=== PATIENT | male | born 1940 | race Caucasian/White ===

== ENCOUNTER 2016-04-20 10:25 | Outpatient (CLI) | payer MEDICARE | END 2016-04-20 10:26 | disposition home or self-care (01) | DX: M1A.37 Chronic gout due to renal impairment, ankle and foot (principal); Z12.5 Encounter for screening for malignant neoplasm of prostate; I10 Essential (primary) hypertension; N28.9 Disorder of kidney and ureter, unspecified | CPT/HCPCS: 36415; 80053; 84550; 85025; G0103 ==

== ENCOUNTER 2016-04-22 09:35 | Outpatient (CLI) | payer MEDICARE | END 2016-04-22 09:36 | disposition home or self-care (01) | DX: R97.20 Elevated prostate specific antigen [PSA] (principal) ==

== ENCOUNTER 2016-09-19 08:33 | Outpatient (CLI) | payer MEDICARE ==
[2016-09-19 13:07] LABS: BASOPHILS % (AUTO) 0.4 %; EOSINOPHILS # (AUTO) 0.4 10^3/uL (0.0-0.7); EOSINOPHILS % (AUTO) 3.3 %; HCT - HEMATOCRIT 43.5 % (42.0-52.0); HGB - HEMOGLOBIN 14.7 g/dL (14.0-18.0); LYMPHOCYTES # (AUTO) 2.2 10^3/uL (1.5-3.5); LYMPHOCYTES % (AUTO) 19.3 %; MEAN CORPUSCULAR HEMOGLOBIN 34.6 pg (27.0-31.0); MEAN CORPUSCULAR HGB CONC 33.9 g/dL (32.0-36.0); MEAN PLATELET VOLUME 10.1 fL (7.4-11.4); MONOCYTES # (AUTO) 1.1 10^3/uL (0.0-1.0); MONOCYTES % (AUTO) 9.4 %; NEUTROPHILS # (AUTO) 7.7 10^3/uL (1.5-6.6); NEUTROPHILS % (AUTO) 67.6 %; RED BLOOD COUNT 4.26 10^6/uL (4.70-6.10); RED CELL DISTRIBUTION WIDTH 14.5 % (12.0-15.0); UNCORRECTED WHITE BLOOD COUNT 11.4 x10^3/uL; WHITE BLOOD COUNT 11.4 x10^3/uL (4.8-10.8)
[2016-09-19 13:26] LABS: ALBUMIN/GLOBULIN RATIO 1.1 (1.0-2.2); BILIRUBIN,TOTAL 0.9 mg/dL (0.2-1.0); BUN - BLOOD UREA NITROGEN 26 mg/dL (6-20); CALCIUM 9.1 mg/dL (8.5-10.3); CARBON DIOXIDE - CO2 29 mmol/L (21-32); CHLORIDE 99 mmol/L (101-111); CHOL/HDL RATIO 2.1 (<5.0); CHOLESTEROL 113 mg/dL; CREATININE 1.3 mg/dL (0.6-1.2); GFR - MDRD 54 (>89); GLUCOSE 120 mg/dL (70-100); HDL CHOLESTEROL 54 mg/dL; LDL/HDL RATIO 0.8 (<3.6); POTASSIUM 3.9 mmol/L (3.5-5.0); SODIUM 135 mmol/L (135-145); TOTAL PROTEIN 7.5 g/dL (6.7-8.2); TRIGLYCERIDES 85 mg/dL; VLDL CHOLESTEROL 17 mg/dL
[2016-09-19 13:38] LABS: HEMOGLOBIN A1C 0.73 g/dL
== END 2016-09-19 08:34 | disposition home or self-care (01) ==
LOC: LAB.WCP 08:33
PROVIDERS: ATTEND Family Medicine
DX: I10 Essential (primary) hypertension (principal); E11.51 Type 2 diabetes mellitus with diabetic peripheral angiopathy without gangrene; E78.5 Hyperlipidemia, unspecified
CPT/HCPCS: 36415; 80053; 80061; 82043; 83036; 85025

== ENCOUNTER 2017-03-21 08:00 | Outpatient (CLI) | payer MEDICARE ==
[2017-03-21 19:09] LABS: BASOPHILS % (AUTO) 0.6 %; EOSINOPHILS % (AUTO) 4.9 %; HCT - HEMATOCRIT 46.2 % (42.0-52.0); HGB - HEMOGLOBIN 15.4 g/dL (14.0-18.0); LYMPHOCYTES % (AUTO) 28.6 %; MEAN CORPUSCULAR HEMOGLOBIN 34.4 pg (27.0-31.0); MEAN CORPUSCULAR HGB CONC 33.3 g/dL (32.0-36.0); MEAN CORPUSCULAR VOLUME 103.6 fL (80.0-94.0); MEAN PLATELET VOLUME 10.4 fL (7.4-11.4); MONOCYTES % (AUTO) 8.8 %; NEUTROPHILS % (AUTO) 57.1 %; RED BLOOD COUNT 4.47 10^6/uL (4.70-6.10); RED CELL DISTRIBUTION WIDTH 13.9 % (12.0-15.0); UNCORRECTED WHITE BLOOD COUNT 8.7 x10^3/uL; WHITE BLOOD COUNT 8.7 x10^3/uL (4.8-10.8)
[2017-03-21 19:15] LABS: BAND NEUTROPHILS % (MANUAL) 0 %
[2017-03-21 19:33] LABS: BASOPHILS % (MANUAL) 1 %; EOSINOPHILS % (MANUAL) 4 %; LYMPHOCYTES % (MANUAL) 33 %; NEUTROPHILS % (MANUAL) 52 %; NP AUTO DIFFERENTIAL? YES; NP MAN DIFFERENTIAL? NO; PLATELET ESTIMATE, MANUAL NORMAL (130-450,000) (NORMAL); PLATELET MORPHOLOGY NORMAL APPEARANCE (NORMAL); TOTAL CELLS COUNTED 100
== END 2017-03-21 08:01 | disposition home or self-care (01) ==
LOC: LAB.WCP 08:00
PROVIDERS: ATTEND Family Medicine
DX: D72.829 Elevated white blood cell count, unspecified (principal)
CPT/HCPCS: 36415; 85025

== ENCOUNTER 2017-05-08 14:13 | Outpatient (CLI) | payer MEDICARE ==
[2017-05-08 19:29] LABS: ALBUMIN 3.8 g/dL (3.2-5.5); BILIRUBIN,TOTAL 0.8 mg/dL (0.2-1.0); CALCIUM 8.6 mg/dL (8.5-10.3); CREATININE 1.6 mg/dL (0.6-1.2); TOTAL PROTEIN 7.6 g/dL (6.7-8.2)
== END 2017-05-08 14:14 | disposition home or self-care (01) ==
LOC: LAB.WCP 14:13
PROVIDERS: ATTEND Family Medicine
DX: N39.0 Urinary tract infection, site not specified (principal); N40.1 Benign prostatic hyperplasia with lower urinary tract symptoms; R30.0 Dysuria
CPT/HCPCS: 36415; 80053; 87077; 87086

== ENCOUNTER 2017-05-10 08:00 | Outpatient (CLI) | payer MEDICARE ==
[2017-05-10 12:27] LABS: BASOPHILS % (AUTO) 0.1 %; HGB - HEMOGLOBIN 15.1 g/dL (14.0-18.0); LYMPHOCYTES % (AUTO) 5.8 %; MEAN CORPUSCULAR HEMOGLOBIN 34.8 pg (27.0-31.0); MEAN CORPUSCULAR HGB CONC 34.8 g/dL (32.0-36.0); MEAN CORPUSCULAR VOLUME 99.8 fL (80.0-94.0); MEAN PLATELET VOLUME 9.5 fL (7.4-11.4); MONOCYTES # (AUTO) 1.6 10^3/uL (0.0-1.0); MONOCYTES % (AUTO) 9.2 %; NEUTROPHILS # (AUTO) 14.7 10^3/uL (1.5-6.6); NEUTROPHILS % (AUTO) 84.9 %; PLT - PLATELET COUNT 201 10^3/uL (130-450); RED BLOOD COUNT 4.35 10^6/uL (4.70-6.10); RED CELL DISTRIBUTION WIDTH 13.3 % (12.0-15.0); WHITE BLOOD COUNT 17.3 x10^3/uL (4.8-10.8)
[2017-05-10 13:13] LABS: CALCIUM 8.9 mg/dL (8.5-10.3); CREATININE 1.7 mg/dL (0.6-1.2)
== END 2017-05-10 08:01 | disposition home or self-care (01) ==
LOC: LAB.WCP 08:00
PROVIDERS: ATTEND Family Medicine
DX: E87.1 Hypo-osmolality and hyponatremia (principal); N39.0 Urinary tract infection, site not specified
CPT/HCPCS: 36415; 80048; 85025

== ENCOUNTER 2017-05-12 08:15 | Outpatient (CLI) | payer MEDICARE ==
[2017-05-12 12:16] LABS: CALCIUM 8.8 mg/dL (8.5-10.3); CREATININE 1.6 mg/dL (0.6-1.2)
[2017-05-12 12:35] LABS: BASOPHILS # (AUTO) 0.1 10^3/uL (0.0-0.1); BASOPHILS % (AUTO) 0.8 %; EOSINOPHILS # (AUTO) 0.4 10^3/uL (0.0-0.7); EOSINOPHILS % (AUTO) 2.5 %; HGB - HEMOGLOBIN 14.7 g/dL (14.0-18.0); LYMPHOCYTES # (AUTO) 1.8 10^3/uL (1.5-3.5); LYMPHOCYTES % (AUTO) 12.3 %; MEAN CORPUSCULAR HEMOGLOBIN 35.2 pg (27.0-31.0); MEAN CORPUSCULAR HGB CONC 35.7 g/dL (32.0-36.0); MEAN CORPUSCULAR VOLUME 98.4 fL (80.0-94.0); MEAN PLATELET VOLUME 9.2 fL (7.4-11.4); MONOCYTES # (AUTO) 1.3 10^3/uL (0.0-1.0); NEUTROPHILS # (AUTO) 10.9 10^3/uL (1.5-6.6); NEUTROPHILS % (AUTO) 75.4 %; PLT - PLATELET COUNT 205 10^3/uL (130-450); RED BLOOD COUNT 4.17 10^6/uL (4.70-6.10); RED CELL DISTRIBUTION WIDTH 13.2 % (12.0-15.0); WHITE BLOOD COUNT 14.4 x10^3/uL (4.8-10.8)
== END 2017-05-12 08:16 | disposition home or self-care (01) ==
LOC: LAB.WCP 08:15
PROVIDERS: ATTEND Family Medicine
DX: N28.9 Disorder of kidney and ureter, unspecified (principal); N39.0 Urinary tract infection, site not specified; E78.1 Pure hyperglyceridemia; I10 Essential (primary) hypertension
CPT/HCPCS: 36415; 80048; 85025

== ENCOUNTER 2017-05-15 08:04 | Outpatient (CLI) | payer MEDICARE ==
[2017-05-15 12:42] LABS: BASOPHILS % (AUTO) 0.7 %; EOSINOPHILS % (AUTO) 3.2 %; HGB - HEMOGLOBIN 13.9 g/dL (14.0-18.0); LYMPHOCYTES % (AUTO) 14.6 %; MEAN CORPUSCULAR HEMOGLOBIN 34.4 pg (27.0-31.0); MEAN CORPUSCULAR HGB CONC 35.8 g/dL (32.0-36.0); MEAN CORPUSCULAR VOLUME 96.1 fL (80.0-94.0); MEAN PLATELET VOLUME 8.4 fL (7.4-11.4); MONOCYTES % (AUTO) 9.3 %; NEUTROPHILS % (AUTO) 72.2 %; PLT - PLATELET COUNT 236 10^3/uL (130-450); RED BLOOD COUNT 4.04 10^6/uL (4.70-6.10); RED CELL DISTRIBUTION WIDTH 13.2 % (12.0-15.0); WHITE BLOOD COUNT 12.7 x10^3/uL (4.8-10.8)
[2017-05-15 12:44] LABS: CALCIUM 8.9 mg/dL (8.5-10.3); CREATININE 1.6 mg/dL (0.6-1.2)
[2017-05-15 13:11] LABS: ABNORMAL LYMPHS % (MANUAL) 0 %; BAND NEUTROPHILS % (MANUAL) 2 %; DIFFERENTIAL COMMENT MANUAL DIFFERENTIAL; EOSINOPHILS # (MANUAL) 0.8 10^3/uL (0-0.7); LYMPHOCYTES # (MANUAL) 1.8 10^3/uL (1.5-3.5); LYMPHOCYTES % (MANUAL) 14 %; METAMYELOCYTES % (MANUAL) 1 %; MONOCYTES # (MANUAL) 1.3 10^3/uL (0.0-1.0); NEUTROPHILS # (MANUAL) 8.8 10^3/uL (1.5-6.6); NEUTROPHILS % (MANUAL) 67 %; PLATELET ESTIMATE, MANUAL NORMAL (130-450,000) (NORMAL); PLATELET MORPHOLOGY NORMAL APPEARANCE (NORMAL); RBC MORPHOLOGY (MULTIPLE) NORMAL APPEARANCE (NORMAL)
== END 2017-05-15 08:05 | disposition home or self-care (01) ==
LOC: LAB.WCP 08:04
PROVIDERS: ATTEND Family Medicine
DX: N40.1 Benign prostatic hyperplasia with lower urinary tract symptoms (principal); N39.0 Urinary tract infection, site not specified; N28.9 Disorder of kidney and ureter, unspecified
CPT/HCPCS: 36415; 80048; 85025

== ENCOUNTER 2017-08-17 14:36 | Emergency (ER) | payer MEDICARE, OTHER ==
--- NOTE | 2017-08-17 14:57 | ED Physician Documentation ---
PD HPI CHEST PAIN - Stated complaint Stated Complaint: CHEST ACHE/TWINGES - Chief complaint Chief Complaint: Cardiac - History obtained from History obtained from: Patient, Family () - History of Present Illness Timing - onset: Other (76 year-old gentleman with history of stenting 1 8 years ago who had a near syncopal episode while doing yard work about a month ago and ever since then has been just aware of his heart with a mild pressure- like pain that radiates between the shoulder blades. Does not get worse with exertion. He is not short of breath with it. Last stress test was a proximally 3 years ago per him and negative.) Review of Systems Constitutional: denies: Fever, Chills Nose: denies: Rhinorrhea / runny nose Throat: denies: Sore throat Cardiac: denies: Palpitations, Pedal edema, Calf pain Respiratory: denies: Dyspnea, Cough PD PAST MEDICAL HISTORY - Past Medical History Past Medical History: Yes Endocrine/Autoimmune: None Musculoskeletal: Osteoarthritis, Chronic back pain, Other - Past Surgical History Past Surgical History: Yes General: Appendectomy Ortho: Hip replacement Cardiovascular: Coronary stent - Present Medications Home Medications: Ambulatory Orders Medication Instructions Recorded Confirmed Atenolol 50 mg PO DAILY 03/21/14 03/21/14 Atorvastatin [Lipitor] 10 mg PO DAILY 03/21/14 03/21/14 hydroCHLOROthiazide 12.5 mg PO DAILY 03/21/14 03/21/14 [Hydrochlorothiazide] Aspirin Chewable [[facility] [place] 08/17/17 Aspirin] Tamsulosin [Flomax] 08/17/17 - Allergies Allergies/Adverse Reactions: Allergies Allergy/AdvReac Type Severity Reaction Status Date / Time No Known Drug Allergies Allergy Verified 08/17/17 14:49 - Social History Does the pt smoke?: No Smoking Status: Never smoker Does the pt drink ETOH?: No Does the pt have substance abuse?: No - Family History Family history: reports: Non contributory - Immunizations Immunizations are current?: Yes - POLST Patient has POLST: No PD ED PE NORMAL - Vitals Vital signs reviewed: Yes - General General: Alert and oriented X 3, No acute distress - HEENT HEENT: PERRL, EOMI - Neck Neck: Supple, no meningeal sign, No bony TTP - Cardiac Cardiac: RRR, No murmur - Respiratory Respiratory: No respiratory distress, Clear bilaterally - Abdomen Abdomen: Normal bowel sounds, Soft, Non tender - Extremities Extremities: No edema, No calf tenderness / cord - Neuro Neuro: Alert and oriented X 3, Normal speech - Psych Psych: Normal mood, Normal affect Results - Vitals Vitals: Vital Signs - 24 hr 08/17/17 08/17/17 08/17/17 14:38 15:27 16:00 Temperature 36.6 C Heart Rate 58 L 59 L 61 Respiratory 18 18 16 Rate Blood Pressure 157/74 H 122/69 126/61 O2 Saturation 100 96 94 08/17/17 16:06 Temperature Heart Rate 56 L Respiratory 15 Rate Blood Pressure 121/62 O2 Saturation 94 Oxygen O2 Source Room air - EKG (time done) 1446 Rate: Rate (enter#) (56) Rhythm: NSR [place]: Normal Intervals: Prolonged [place] QRS: Normal Ischemia: Normal ST segments Computer interpretation: Agree with computer - Labs Labs: Laboratory Tests 08/17/17 08/17/17 08/17/17 14:58 14:58 14:58 WBC 9.9 RBC 4.37 L Hgb 15.1 Hct 43.8 MCV 100.3 H MCH 34.5 H MCHC 34.4 RDW 14.0 Plt Count 169 MPV 9.3 Neut # 6.4 Lymph # 2.1 Barren # 0.9 Eos # 0.3 Baso # 0.1 Absolute Nucleated RBC 0.00 Nucleated RBC % 0.0 Sodium 134 L Potassium 4.2 Chloride 100 L Carbon Dioxide 27 Anion Gap 7.0 BUN 31 H Creatinine 1.5 H Estimated GFR (MDRD) 45 L Glucose 116 H Calcium 9.3 Total Bilirubin 0.7 AST 25 ALT 25 Alkaline Phosphatase 48 Troponin I < 0.04 Total Protein 7.6 Albumin 4.2 Globulin 3.4 Albumin/Globulin Ratio 1.2 Lipase 21 L PD MEDICAL DECISION MAKING - ED course ED course: 76-year-old gentleman with known coronary disease presents with atypical almost subacute chest pain with presyncopal episode a month ago. His initial diagnostics are reassuring, Including EKG and troponin. We considered CT coronary angiography, however between the stent and his calcium score the radiologist felt like it would be a nondiagnostic study and it was canceled. I spoke with Dr. Medley on-call for his cook chief who will contact the patient and arrange for expedited stress testing. Departure - Departure Disposition: Home, Self Care Clinical Impression: Coronary arteriosclerosis after percutaneous transluminal coronary angioplasty (PTCA) Chest pain Qualifiers: Chest pain type: unspecified Qualified Code(s): R07.9 - Chest pain, unspecified Record reviewed to determine appropriate education?: Yes Instructions: ED Chest Pain Atypical Unkn Cause Comments: Dr. Blanco's office should be contacting you in short order to arrange for an expedited stress test, if you do not hear from them by 3 PM tomorrow please call his office. Return if worsening or new symptoms develop.
[2017-08-17] MEDS ORDERED: IOPAMIDOL-300 100 ML VIAL ONE (15:03)
[2017-08-17 15:04] LABS: BASOPHILS # (AUTO) 0.1 10^3/uL (0.0-0.1); BASOPHILS % (AUTO) 0.5 %; EOSINOPHILS # (AUTO) 0.3 10^3/uL (0.0-0.7); EOSINOPHILS % (AUTO) 3.3 %; HGB - HEMOGLOBIN 15.1 g/dL (14.0-18.0); LYMPHOCYTES # (AUTO) 2.1 10^3/uL (1.5-3.5); LYMPHOCYTES % (AUTO) 21.5 %; MEAN CORPUSCULAR HEMOGLOBIN 34.5 pg (27.0-31.0); MEAN CORPUSCULAR HGB CONC 34.4 g/dL (32.0-36.0); MEAN CORPUSCULAR VOLUME 100.3 fL (80.0-94.0); MEAN PLATELET VOLUME 9.3 fL (7.4-11.4); MONOCYTES # (AUTO) 0.9 10^3/uL (0.0-1.0); MONOCYTES % (AUTO) 9.6 %; NEUTROPHILS # (AUTO) 6.4 10^3/uL (1.5-6.6); NEUTROPHILS % (AUTO) 65.1 %; PLT - PLATELET COUNT 169 10^3/uL (130-450); RED BLOOD COUNT 4.37 10^6/uL (4.70-6.10); WHITE BLOOD COUNT 9.9 x10^3/uL (4.8-10.8)
--- NOTE | 2017-08-17 15:14 | XRAY Report ---
EXAM: CHEST RADIOGRAPHY EXAM DATE: 08/17/2017 03:02 PM. CLINICAL HISTORY: Chest pain. COMPARISON: None. TECHNIQUE: 1 view. FINDINGS: Lungs/Pleura: No focal opacities evident. No pleural effusion. No pneumothorax. Mediastinum: Within exam limitations, the cardiomediastinal contour is normal. Other: None. IMPRESSION: No acute intrathoracic plain film abnormality. [facility] Referring Provider Line: [phone] SITE ID: [id number]
[2017-08-17 15:31] LABS: ALBUMIN 4.2 g/dL (3.2-5.5); ALBUMIN/GLOBULIN RATIO 1.2 (1.0-2.2); BILIRUBIN,TOTAL 0.7 mg/dL (0.2-1.0); CALCIUM 9.3 mg/dL (8.5-10.3); CREATININE 1.5 mg/dL (0.6-1.2); TOTAL PROTEIN 7.6 g/dL (6.7-8.2)
[2017-08-17] MEDS ORDERED: SODIUM CHLORIDE 0.9% 1,000 ML IV ONE (15:41)
[2017-08-17] MEDS ORDERED: NITROGLYCERIN SL 0.4 MG TABLET SL STA (15:57)
[2017-08-17] MEDS ORDERED: METOPROLOL 5 MG/5 ML VIAL IVP STA (15:57)
[2017-08-17 17:06] VITALS: BP 125/62
--- NOTE | 2017-08-17 17:40 | CT Report ---
EXAM: CALCIUM SCORE EXAM DATE: 08/17/2017 04:22 PM. HISTORY: Chest pain. COMPARISON: None. TECHNIQUE: Axial sections were obtained through the heart. In accordance with CT protocol optimization, one or more of the following dose reduction techniques w ere utilized for this exam: automated exposure control, adjustment of mA and/or KV based on patient s ize, or use of iterative reconstructive technique. FINDINGS: CALCIUM SCORE: The LMA equals 251.03. The LAD equals 814.38. The left circumflex equals 794.69. The R CA equals 1320.49. The total calcium score is 3180.59. The patient is in the 96th percentile rank. LUNGS AND MEDIASTINUM: Unremarkable. IMPRESSION: Calcium score of 3180.59. There was a significant plaque burden detected. This score is associated wi th a high probability of occlusive coronary artery disease and an increased risk of cardiovascular ev ents. The patient is advised to aggressively engage in risk factor modifications. Clinical follow-up is recommended. [facility] Referring Provider Line: [phone] SITE ID: [id number]
== END 2017-08-17 17:14 | disposition home or self-care (01) ==
LOC: ED 14:36
DX: I25.10 Atherosclerotic heart disease of native coronary artery without angina pectoris (principal); Z79.82 Long term (current) use of aspirin; Z96.649 Presence of unspecified artificial hip joint; Z95.5 Presence of coronary angioplasty implant and graft
CPT/HCPCS: 36415; 71045; 75571; 80053; 83690; 84484; 85025; 93005; 96374; 99284

== ENCOUNTER 2018-07-24 08:00 | Outpatient (CLI) | payer MEDICARE, OTHER ==
[2018-07-24 12:45] LABS: BASOPHILS # (AUTO) 0.1 10^3/uL (0.0-0.1); BASOPHILS % (AUTO) 0.6 %; EOSINOPHILS # (AUTO) 0.3 10^3/uL (0.0-0.7); EOSINOPHILS % (AUTO) 3.9 %; HGB - HEMOGLOBIN 15.9 g/dL (14.0-18.0); LYMPHOCYTES # (AUTO) 1.9 10^3/uL (1.5-3.5); MEAN CORPUSCULAR HEMOGLOBIN 34.3 pg (27.0-31.0); MEAN CORPUSCULAR HGB CONC 33.7 g/dL (32.0-36.0); MEAN CORPUSCULAR VOLUME 101.8 fL (80.0-94.0); MEAN PLATELET VOLUME 10.1 fL (7.4-11.4); MONOCYTES # (AUTO) 0.9 10^3/uL (0.0-1.0); MONOCYTES % (AUTO) 10.7 %; NEUTROPHILS # (AUTO) 5.3 10^3/uL (1.5-6.6); NEUTROPHILS % (AUTO) 62.8 %; PLT - PLATELET COUNT 187 10^3/uL (130-450); RED BLOOD COUNT 4.63 10^6/uL (4.70-6.10); RED CELL DISTRIBUTION WIDTH 13.6 % (12.0-15.0); WHITE BLOOD COUNT 8.5 x10^3/uL (4.8-10.8)
[2018-07-24 13:31] LABS: ALBUMIN 3.8 g/dL (3.2-5.5); ALBUMIN/GLOBULIN RATIO 1.2 (1.0-2.2); ALKALINE PHOSPHATASE 46 IU/L (42-121); ALT ALANINE AMINOTRANSFERASE 31 IU/L (10-60); AST ASPARTATE AMINOTRANSFERASE 24 IU/L (10-42); BILIRUBIN,TOTAL 0.5 mg/dL (0.2-1.0); BUN - BLOOD UREA NITROGEN 23 mg/dL (6-20); CALCIUM 9.1 mg/dL (8.5-10.3); CARBON DIOXIDE - CO2 27 mmol/L (21-32); CHLORIDE 100 mmol/L (101-111); CHOL/HDL RATIO 1.9 (<5.0); CHOLESTEROL 130 mg/dL; CREATININE 1.3 mg/dL (0.6-1.2); GFR - MDRD 53 (>89); GLUCOSE 133 mg/dL (70-100); HDL CHOLESTEROL 67 mg/dL; LDL CHOLESTEROL,CALCULATED 49 mg/dL; LDL/HDL RATIO 0.7 (<3.6); SODIUM 136 mmol/L (135-145); VLDL CHOLESTEROL 14 mg/dL
[2018-07-24 13:55] LABS: HB2 TOTAL 17.7 g/dL; HEMOGLOBIN A1C 0.81 g/dL; HEMOGLOBIN A1C % 6.3 % (4.6-6.2)
== END 2018-07-24 23:59 | disposition home or self-care (01) ==
LOC: LAB.WCP 08:00
PROVIDERS: ATTEND Family Medicine
DX: I10 Essential (primary) hypertension (principal); E11.51 Type 2 diabetes mellitus with diabetic peripheral angiopathy without gangrene; R97.20 Elevated prostate specific antigen [PSA]; E78.5 Hyperlipidemia, unspecified
CPT/HCPCS: 36415; 80053; 80061; 82043; 83036; 83721; 84153; 85025

== ENCOUNTER 2019-06-21 08:00 | Outpatient (CLI) | payer MEDICARE, OTHER ==
[2019-06-21 11:59] LABS: BASOPHILS % (AUTO) 0.5 %; EOSINOPHILS # (AUTO) 0.3 10^3/uL (0.0-0.7); EOSINOPHILS % (AUTO) 3.6 %; HGB - HEMOGLOBIN 15.4 g/dL (14.0-18.0); LYMPHOCYTES # (AUTO) 1.6 10^3/uL (1.5-3.5); MEAN CORPUSCULAR HEMOGLOBIN 34.9 pg (27.0-31.0); MEAN CORPUSCULAR HGB CONC 34.2 g/dL (32.0-36.0); MONOCYTES # (AUTO) 0.8 10^3/uL (0.0-1.0); MONOCYTES % (AUTO) 9.3 %; NEUTROPHILS # (AUTO) 5.6 10^3/uL (1.5-6.6); NEUTROPHILS % (AUTO) 67.2 %; PLT - PLATELET COUNT 178 10^3/uL (130-450); RED BLOOD COUNT 4.41 10^6/uL (4.70-6.10); WHITE BLOOD COUNT 8.4 x10^3/uL (4.8-10.8)
[2019-06-21 12:12] LABS: ALBUMIN 3.5 g/dL (3.2-5.5); ALBUMIN/GLOBULIN RATIO 1.1 (1.0-2.2); ALKALINE PHOSPHATASE 38 IU/L (42-121); ALT ALANINE AMINOTRANSFERASE 32 IU/L (10-60); AST ASPARTATE AMINOTRANSFERASE 25 IU/L (10-42); BILIRUBIN,TOTAL 1.1 mg/dL (0.2-1.0); BUN - BLOOD UREA NITROGEN 19 mg/dL (6-20); CARBON DIOXIDE - CO2 29 mmol/L (21-32); CHLORIDE 101 mmol/L (101-111); CHOLESTEROL 133 mg/dL; CREATININE 1.4 mg/dL (0.6-1.2); GFR - MDRD 49 (>89); GLUCOSE 128 mg/dL (70-100); HDL CHOLESTEROL 65 mg/dL; LDL CHOLESTEROL,CALCULATED 56 mg/dL; LDL/HDL RATIO 0.9 (<3.6); SODIUM 137 mmol/L (135-145); TOTAL PROTEIN 6.6 g/dL (6.7-8.2); VLDL CHOLESTEROL 12 mg/dL
[2019-06-21 12:20] LABS: HB2 TOTAL 15.7 g/dL; HEMOGLOBIN A1C 0.79 g/dL; HEMOGLOBIN A1C % 6.8 % (4.6-6.2)
[2019-06-21 12:57] LABS: CREATININE,URINE 127.8 mg/dL; MICROALBUM/CREATININE RATIO,UR 2687.8 ug/mg (<30.0); MICROALBUMIN,URINE 343.5 mg/dL (0-300.0)
== END 2019-06-21 23:59 | disposition home or self-care (01) ==
LOC: LAB.WCP 08:00
PROVIDERS: ATTEND Physician Assistant Medical
DX: E87.1 Hypo-osmolality and hyponatremia (principal); I10 Essential (primary) hypertension; E78.5 Hyperlipidemia, unspecified; E11.59 Type 2 diabetes mellitus with other circulatory complications; N28.9 Disorder of kidney and ureter, unspecified; R97.20 Elevated prostate specific antigen [PSA]; G47.00 Insomnia, unspecified
CPT/HCPCS: 36415; 80053; 80061; 82043; 82570; 83036; 83721; 84443; 85025

== ENCOUNTER 2019-07-05 15:04 | Emergency (ER) | payer MEDICARE, OTHER ==
--- NOTE | 2019-07-05 15:20 | ED Physician Documentation ---
PD HPI FOCAL NEURO - Stated complaint Stated Complaint: STROKE LIKE SYMPTOMS - Chief complaint Chief Complaint: Neuro - History obtained from History obtained from: Patient - History of Present Illness Timing - onset: Today (This is an 78-year-old gentleman with history of hypertension. He is on aspirin but no other anticoagulants or antithrombotics. About half an hour ago developed difficulty speaking and difficulty with word finding. He is right-handed. Because he had a similar episode about 3 weeks ago that lasted for about half an hour. He did not seek immediate medical attention at the time, but subsequently saw his primary care PA who has scheduled him for an MRI. He notes no other neurologic deficits.) Review of Systems Ten Systems: 10 systems reviewed and negative Constitutional: denies: Fever, Chills Ears: denies: Loss of hearing, Ear pain Nose: denies: Rhinorrhea / runny nose, Congestion Throat: denies: Sore throat Cardiac: denies: Chest pain / pressure, Palpitations Respiratory: denies: Dyspnea GI: denies: Abdominal Pain PD PAST MEDICAL HISTORY - Past Medical History Past Medical History: Yes Cardiovascular: Hypertension Endocrine/Autoimmune: None Musculoskeletal: Osteoarthritis, Chronic back pain, Other - Past Surgical History Past Surgical History: Yes General: Appendectomy Ortho: Hip replacement Cardiovascular: Coronary stent - Present Medications Home Medications: Ambulatory Orders Medication Instructions Recorded Confirmed Atenolol 50 mg PO DAILY 03/21/14 03/21/14 Atorvastatin [Lipitor] 10 mg PO DAILY 03/21/14 03/21/14 hydroCHLOROthiazide 12.5 mg PO DAILY 03/21/14 03/21/14 [Hydrochlorothiazide] Aspirin Chewable [[facility] [place] 08/17/17 Aspirin] Tamsulosin [Flomax] 08/17/17 - Allergies Allergies/Adverse Reactions: Allergies Allergy/AdvReac Type Severity Reaction Status Date / Time No Known Drug Allergies Allergy Verified 07/05/19 15:19 - Social History Does the pt smoke?: No Smoking Status: Never smoker Does the pt drink ETOH?: No Does the pt have substance abuse?: No - Family History Family history: reports: Non contributory - Immunizations Immunizations are current?: Yes - POLST Patient has POLST: No PD ED PE NORMAL - Vitals Vital signs reviewed: Yes - General General: Alert and oriented X 3, No acute distress, Well developed/nourished - HEENT HEENT: PERRL, EOMI - Neck Neck: Supple, no meningeal sign, No bony TTP - Cardiac Cardiac: RRR, No murmur - Respiratory Respiratory: No respiratory distress, Clear bilaterally - Abdomen Abdomen: Normal bowel sounds, Soft, Non tender - Back Back: No CVA TTP, No spinal TTP - Derm Derm: Normal color, Warm and dry - Extremities Extremities: No edema, No calf tenderness / cord - Neuro Neuro: Alert and oriented X 3, Normal speech NIHSS - Time Time: 15:15 - Level of Consciousness Level of consciousness: (0) Alert, Keenly responsive LOC Questions: (0) Answers both Q's correct LOC Commands: (0) Performs both correctly - Gaze Best Gaze: (0) Normal - Visual Visual: (0) No loss - Facial Palsy Facial Palsy: (0) Normal, symmetrical movement - Motor Arms (both separate) Motor Arm (right): (0) No drift Motor Arm (left): (0) No drift - Motor Legs (both separate) Motor Leg (right): (0) No drift Motor Leg (left): (0) No drift - Limb Ataxia Limb Ataxia: (0) Absent - Sensory Sensory: (0) Normal - Best Language Best Language: (1) [id number] - Dysarthria Dysarthria: (0) Normal - Extinction and Inattention (formally neg Extinction and inattention: (0) No abnormality - Total Score/Results Total Score/Result: 1 Results - Vitals Vitals: Vital Signs - 24 hr 07/05/19 07/05/19 07/05/19 15:13 15:48 16:00 Temperature 36.6 C Heart Rate 61 63 62 Respiratory 18 17 16 Rate Blood Pressure 145/77 H 172/76 H 158/70 H O2 Saturation 100 99 97 07/05/19 16:30 Temperature 36.5 C Heart Rate 63 Respiratory 18 Rate Blood Pressure 153/73 H O2 Saturation 96 Oxygen O2 Source Room air - EKG (time done) 1533 Rate: Rate (enter#) (62) Rhythm: NSR [place]: Normal Intervals: Prolonged [place] QRS: Normal Ischemia: Normal ST segments Computer interpretation: Agree with computer - Labs Labs: Laboratory Tests 07/05/19 07/05/19 07/05/19 15:12 15:19 15:19 WBC 10.0 RBC 4.38 L Hgb 15.3 Hct 44.4 MCV 101.4 H MCH 34.9 H MCHC 34.5 RDW 12.6 Plt Count 193 MPV 10.8 Neut # (Auto) 6.4 Lymph # (Auto) 2.3 [place] # (Auto) 0.9 Eos # (Auto) 0.2 Baso # (Auto) 0.1 Absolute Nucleated RBC 0.00 Nucleated RBC % 0.0 PT 11.6 INR 1.0 Sodium Potassium Chloride Carbon Dioxide Anion Gap BUN Creatinine Estimated GFR (MDRD) Glucose POC Whole Bld Glucose 153 H Calcium Total Bilirubin AST ALT Alkaline Phosphatase Total Protein Albumin Globulin Albumin/Globulin Ratio Lipase 07/05/19 15:19 WBC RBC Hgb Hct MCV MCH MCHC RDW Plt Count MPV Neut # (Auto) Lymph # (Auto) [place] # (Auto) Eos # (Auto) Baso # (Auto) Absolute Nucleated RBC Nucleated RBC % PT INR Sodium 134 L Potassium 4.2 Chloride 103 Carbon Dioxide 25 Anion Gap 6.0 BUN 21 H Creatinine 1.4 H Estimated GFR (MDRD) 49 L Glucose 149 H POC Whole Bld Glucose Calcium 8.5 Total Bilirubin 0.7 AST 21 ALT 26 Alkaline Phosphatase 38 L Total Protein 6.5 L Albumin 3.6 Globulin 2.9 Albumin/Globulin Ratio 1.2 Lipase 31 - Rads (name of study) CT head Radiology: Discussed with rads, EMP read contemporaneously (NAD) CTA head/neck Radiology: EMP read contemporaneously (atherosclerosis, but no LVO) PD MEDICAL DECISION MAKING - ED course ED course: 78-year-old gentleman with incomplete aphasia, NIH stroke scale of 1. He lives close and presented very quickly for treatment. Had what sounded like a TIA with similar symptoms about 3 weeks ago. Case discussed by phone with the on- call stroke neurologist, Dr Pastor, at [facility] who did recommend TPA, the risks and benefits were discussed with the patient and his and written consent was obtained. TPA bolus given at 1555 He was accepted to [facility] by the stroke neurologist, cobras were completed and he is stable for transport. Note that about 20 minutes after the TPA bolus his aphasia seems to be gone. - Critical Care Time(min): 40 Time Includes: Direct patient care, Review records, Reassess patient, Document care, Coordinate care, Medical consult, Family consult for tx dec Data interpretation: Labs, Pulse ox Procedures included in critical care time: Peripheral IV Procedures excluded from critical care time: EKG Departure - Departure Disposition: 02 Transfer Acute Care Hosp Clinical Impression: Cerebrovascular accident (CVA) Condition: Critical
[2019-07-05] MEDS ORDERED: IOVERSOL 320 100 ML VIAL IVP ONE ×2 (15:22→15:44)
[2019-07-05 15:30] LABS: BASOPHILS # (AUTO) 0.1 10^3/uL (0.0-0.1); BASOPHILS % (AUTO) 0.6 %; EOSINOPHILS # (AUTO) 0.2 10^3/uL (0.0-0.7); EOSINOPHILS % (AUTO) 2.4 %; HGB - HEMOGLOBIN 15.3 g/dL (14.0-18.0); LYMPHOCYTES # (AUTO) 2.3 10^3/uL (1.5-3.5); LYMPHOCYTES % (AUTO) 23.1 %; MEAN CORPUSCULAR HEMOGLOBIN 34.9 pg (27.0-31.0); MEAN CORPUSCULAR HGB CONC 34.5 g/dL (32.0-36.0); MEAN CORPUSCULAR VOLUME 101.4 fL (80.0-94.0); MEAN PLATELET VOLUME 10.8 fL (7.4-11.4); MONOCYTES # (AUTO) 0.9 10^3/uL (0.0-1.0); MONOCYTES % (AUTO) 8.8 %; NEUTROPHILS # (AUTO) 6.4 10^3/uL (1.5-6.6); NEUTROPHILS % (AUTO) 64.3 %; PLT - PLATELET COUNT 193 10^3/uL (130-450); RED BLOOD COUNT 4.38 10^6/uL (4.70-6.10); RED CELL DISTRIBUTION WIDTH 12.6 % (12.0-15.0)
[2019-07-05] MEDS ORDERED: WATER FOR INJECTION STERILE IV STA (15:35)
[2019-07-05] MEDS ORDERED: ALTEPLASE IV STA (15:35)
[2019-07-05 15:49] LABS: PT - PROTHROMBIN TIME 11.6 secs (9.9-12.6)
--- NOTE | 2019-07-05 15:51 | CT Report ---
Reason: Stroke symptoms Procedure Date: 07/05/2019 Accession Number: [id number] / [id number] Procedure: CT - Head W/O Stroke Protocol CPT Code: Final Report FULL RESULT: EXAM: CT HEAD EXAM DATE: 07/05/2019 03:30 PM. CLINICAL HISTORY: Stroke symptoms. Aphasia for about 60 minutes. COMPARISON: None. TECHNIQUE: Multiaxial CT images were obtained from the foramen magnum to the vertex. Reformats: Sagittal and coronal. IV contrast: None. In accordance with CT protocol optimization, one or more of the following dose reduction techniques were utilized for this exam: automated exposure control, adjustment of mA and/or KV based on patient size, or use of iterative reconstructive technique. FINDINGS: Parenchyma: No intraparenchymal hemorrhage. No evidence of mass, midline shift, or CT findings of acute infarction. Estevez-white differentiation is distinct. ASPECTS 10. Diffuse chronic microangiopathic white matter changes are evident. Extraaxial Spaces: Normal for age. No subdural or epidural collections identified. Ventricles: The ventricles and cortical sulci are enlarged, consistent with age-related tissue loss. Sinuses and orbits: Imaged paranasal sinuses, orbits, and mastoids show no significant abnormality. Bones: No evidence of fracture or calvarial defect. TMJ DJD notable on the right. Other: Intracranial atherosclerosis, chronic cavernous carotid calcifications. IMPRESSION: Generalized age-related cortical atrophic changes without evidence of acute intracranial abnormality. [facility] The critical test notification system was initiated by Dr. Antonio Guidry at 03:45 PM on 07/05/2019. The above critical test findings were discussed with Tima Todd by Dr. Antonio Guidry at 03:48 PM on 07/05/2019.
[2019-07-05 15:53] LABS: ALBUMIN 3.6 g/dL (3.2-5.5); ALBUMIN/GLOBULIN RATIO 1.2 (1.0-2.2); BILIRUBIN,TOTAL 0.7 mg/dL (0.2-1.0); CALCIUM 8.5 mg/dL (8.5-10.3); CREATININE 1.4 mg/dL (0.6-1.2); TOTAL PROTEIN 6.5 g/dL (6.7-8.2)
[2019-07-05] MEDS ORDERED: ALTEPLASE 100 MG VIAL IVP ONE (15:55)
[2019-07-05] MEDS ORDERED: WATER FOR INJECTION STERILE IV ONE (16:00)
[2019-07-05] MEDS ORDERED: ALTEPLASE IV ONE (16:00)
--- NOTE | 2019-07-05 16:12 | CT Report ---
Reason: Stroke symptoms Procedure Date: 07/05/2019 Accession Number: [id number] / [id number] Procedure: CT - ANGIO NECK W CPT Code: Final Report FULL RESULT: EXAM: CT ANGIOGRAM NECK EXAM DATE: 07/05/2019 03:33 PM. CLINICAL HISTORY: Acute aphasia. COMPARISON: No prior CTA. TECHNIQUE: Routine axial helical imaging was performed from the skull base through the aortic arch. Reconstructions: Routine multiplanar 3D MIP reconstructions. IV Contrast: 80 mL Optiray 320. Evaluation of arterial stenosis is based on a NASCET method of measurement. In accordance with CT protocol optimization, one or more of the following dose reduction techniques were utilized for this exam: automated exposure control, adjustment of mA and/or KV based on patient size, or use of iterative reconstructive technique. FINDINGS: Moderately prominent atherosclerosis of the mid to distal aortic arch. The great vessel origins are patent. Mild proximal subclavian artery atherosclerosis without flow limiting stenosis. Mild to moderate cervical carotid artery atherosclerosis without evidence of acute abnormality or focal flow-limiting stenosis. Minimal vertebral artery atherosclerosis without evidence of acute abnormality or flow-limiting stenosis. IMPRESSION: Large artery atherosclerosis is present but there is no evidence of acute abnormality or significant stenosis of the cervical, vertebral or carotid arteries. [facility]
--- NOTE | 2019-07-05 16:18 | CT Report ---
Reason: Stroke symptoms Procedure Date: 07/05/2019 Accession Number: [id number] / [id number] Procedure: CT - ANGIO HEAD W/WO CPT Code: Final Report FULL RESULT: EXAM: CT ANGIOGRAM HEAD. CT SCAN OF THE HEAD WITH CONTRAST. EXAM DATE: 07/05/2019 03:33 PM CLINICAL HISTORY: Acute aphasia. COMPARISON: No prior CTA. TECHNIQUE: - CT Scan Head: Using a multidetector scanner, axial images were acquired from the foramen magnum to the skull vertex prior to and following contrast administration. - CT Angiogram: Using a multidetector scanner, high-resolution axial images were acquired from the skull base through vertex following rapid infusion of intravenous contrast. Reformats: Multiplanar MIP reformats were reconstructed. NASCET criteria used for stenosis measurement. IV Contrast: 80 mL Optiray 320. In accordance with CT protocol optimization, one or more of the following dose reduction techniques were utilized for this exam: automated exposure control, adjustment of mA and/or KV based on patient size, or use of iterative reconstructive technique. FINDINGS: Brain CT with IV contrast: No abnormal enhancement. Head CT angiogram: Minimal vertebral artery calcification. No acute abnormality or flow-limiting stenosis. Unremarkable basilar artery. No proximal flow-limiting stenosis or occlusion of the posterior cerebral arteries. Patent left posterior communicating artery. A tiny right posterior communicating artery may also be present. Prominent atherosclerotic calcifications of the cavernous and paraclinoid ICA segments without ICA occlusion. Findings are consistent with chronic atherosclerosis. No proximal flow-limiting stenosis or occlusion of the anterior cerebral arteries. Mild luminal stenosis and irregularity of the distal right MCA M1 segment. This does not appear acute or flow-limiting, no associated intraluminal focal filling defect. No other evidence of middle cerebral artery large/proximal branch occlusion or flow-limiting stenosis. No evidence for aneurysm of the [place]. IMPRESSION: CT Head: No abnormal enhancement. CTA Head: Intracranial atherosclerosis but no evidence for acute large vessel occlusion or focal flow-limiting stenosis. The above findings do not preclude the possibility of small or early ischemic infarct. [facility]
[2019-07-05] MEDS ORDERED: SODIUM CHLORIDE 0.9% 1,000 ML IV ONE (16:53)
[2019-07-05 17:04] VITALS: BP 158/75
== END 2019-07-05 17:20 | disposition short-term general hospital (02) ==
LOC: ED 15:04
DX: I63.9 Cerebral infarction, unspecified (principal); R47.01 Aphasia; I10 Essential (primary) hypertension
CPT/HCPCS: 36415; 37195; 70496; 70498; 80053; 83690; 85025; 85610; 93005; 96374; 99291; J2997; Q9967; 70450

== ENCOUNTER 2019-09-30 08:00 | Outpatient (CLI) | payer MEDICARE, OTHER ==
[2019-09-30 18:40] LABS: ALBUMIN/GLOBULIN RATIO 1.3 (1.0-2.2); ALKALINE PHOSPHATASE 50 IU/L (42-121); ALT ALANINE AMINOTRANSFERASE 32 IU/L (10-60); AST ASPARTATE AMINOTRANSFERASE 25 IU/L (10-42); BILIRUBIN,TOTAL 0.8 mg/dL (0.2-1.0); BUN - BLOOD UREA NITROGEN 29 mg/dL (6-20); CARBON DIOXIDE - CO2 27 mmol/L (21-32); CHLORIDE 105 mmol/L (101-111); CHOL/HDL RATIO 2.2 (<5.0); CHOLESTEROL 119 mg/dL; CREATININE 1.4 mg/dL (0.6-1.2); GLUCOSE 93 mg/dL (70-100); HDL CHOLESTEROL 55 mg/dL; LDL CHOLESTEROL,CALCULATED 41 mg/dL; LDL/HDL RATIO 0.7 (<3.6); SODIUM 139 mmol/L (135-145); TOTAL PROTEIN 7.2 g/dL (6.7-8.2); VLDL CHOLESTEROL 23 mg/dL
[2019-09-30 19:03] LABS: HEMOGLOBIN A1C 0.73 g/dL; HEMOGLOBIN A1C % 6.6 % (4.6-6.2)
== END 2019-09-30 23:59 | disposition home or self-care (01) ==
LOC: LAB.WCP 08:00
PROVIDERS: ATTEND Physician Assistant Medical
DX: E78.5 Hyperlipidemia, unspecified (principal); E11.59 Type 2 diabetes mellitus with other circulatory complications
CPT/HCPCS: 36415; 80053; 80061; 83036; 83721

== ENCOUNTER 2020-04-22 09:17 | Outpatient (CLI) | payer MEDICARE, OTHER ==
[2020-04-22 13:36] LABS: CALCIUM 9.4 mg/dL (8.5-10.3); CREATININE 1.6 mg/dL (0.6-1.2)
[2020-04-22 14:30] LABS: HEMOGLOBIN A1c% 6.5 % (4.27-6.07)
== END 2020-04-22 23:59 | disposition home or self-care (01) ==
LOC: LAB.WCP 09:17
PROVIDERS: ATTEND Physician Assistant Medical
DX: E11.59 Type 2 diabetes mellitus with other circulatory complications (principal)
CPT/HCPCS: 36415; 80048; 83036

== ENCOUNTER → 2020-04-22 | Outpatient (CLI) | payer MEDICARE, OTHER ==
--- NOTE | 2020-04-22 10:33 | XRAY Report ---
PROCEDURE: Ankle 3 View RT INDICATIONS: RIGHT ANKLE PAIN TECHNIQUE: 3 views of the ankle were acquired. COMPARISON: None FINDINGS: Bones: No fractures or dislocations. Ankle mortise is normally aligned. No suspicious bony lesions . Well-defined plantar calcaneal enthesophyte is seen. Soft tissues: No tibiotalar joint effusion. Achilles tendon appears normal. Mild lateral ankle sof t tissue swelling is seen. Vascular calcifications are noted in posterior ankle joint. IMPRESSION: No ankle fracture or dislocation. Mild lateral ankle soft tissue swelling. Intact ankle mortise. Reviewed by: Edi Mendieta MD on 04/22/2020 10:32 AM [facility] Approved by: Edi Mendieta MD on 04/22/2020 10:32 AM [facility] Station ID: [id number]
--- NOTE | 2020-04-22 10:34 | XRAY Report ---
PROCEDURE: Hip 1 View RT INDICATIONS: RIGHT HIP PAIN TECHNIQUE: 3 views of the hip were acquired. COMPARISON: None FINDINGS: Bones: Patient is status post prior left total hip arthroplasty. Moderate right hip joint osteoarthri tic changes are seen. No evidence of avascular necrosis of femoral head. No fractures or dislocations . No suspicious bony lesions. The visualized pelvic ring appears intact. Soft tissues: No suspicious soft tissue calcifications or masses. IMPRESSION: Moderate right hip joint osteoarthritis. No acute fracture or dislocation. No evidence of avascular n ecrosis. Prior left total hip arthroplasty. No gross hardware complication. Reviewed by: Edi Mendieta MD on 04/22/2020 10:33 AM PST Approved by: Edi Mendieta MD on 04/22/2020 10:33 AM PST Station ID: [id number]
== END ==
LOC: DI.WCP 09:48
PROVIDERS: ATTEND Physician Assistant Medical
DX: M16.11 Unilateral primary osteoarthritis, right hip (principal); Z96.642 Presence of left artificial hip joint; M25.571 Pain in right ankle and joints of right foot

== ENCOUNTER 2020-08-12 10:08 | Outpatient (CLI) | payer MEDICARE, OTHER ==
--- NOTE | 2020-08-12 17:31 | MRI Report ---
PROCEDURE: Lumbar Spine W/O INDICATIONS: CHRONIC RT LBP W/RT SCIATICA TECHNIQUE: Noncontrast sagittal T1 spin echo and T2 fast echo, sagittal STIR, axial T1 and T2 fast spin echo thr ough the lumbar spine. In cases with scoliosis, additional coronal T2 fast spin echo may be performe d. COMPARISON: None. FINDINGS: Image quality: Excellent. Alignment and Curvature: There is grade 2 L5-S1 anterolisthesis secondary to L5 pars interarticulari s defects. Bone Marrow: Reactive endplate changes noted adjacent to the L2-L3, L3-L4, L4-L5 and L5-S1 discs. No acute vertebral body compression fractures. Spinal Cord: Conus medullaris terminates at the L1-L2 disc level. Visualized cord demonstrates norm al signal and size. Paraspinous Soft Tissues: No paravertebral masses. T12-L1: Loss of disc signal. No central stenosis. No neural foraminal narrowing. No neural compressi on. L1-L2: Loss of disc signal. Mild, diffuse disc bulge. No central stenosis. No neural foraminal tremayne rowing. No neural compression. L2-L3: Loss of disc signal and mild loss of disc height. Mild, diffuse disc bulge. Rple-en-dxnfpbm e bilateral facet hypertrophy. Moderate narrowing of the central canal. Mild to moderate right and mi ld left neural foraminal narrowing. No neural compression. L3-L4: Loss of disc signal and height. Mild, diffuse disc bulge. Rjpu-he-jhgogiom bilateral facet h ypertrophy. Moderate narrowing of the central canal. Severe right and moderate left neural foraminal narrowing with compression of the exiting right L3 nerve root. L4-L5: Loss of disc signal and height. Mild, diffuse disc bulge. Mild bilateral facet hypertrophy. No central stenosis. Moderate bilateral neural foraminal narrowing. No neural compression. L5-S1: Loss of disc signal and height. Mild, diffuse disc bulge. Mild bilateral facet hypertrophy. No central stenosis. Severe bilateral neural foraminal narrowing with compression of the exiting L5 n erve roots. IMPRESSION: 1. Grade 2 L5-S1 isthmic spondylolisthesis. 2. Multilevel degenerative disc disease. 3. Multilevel facet arthropathy. 4. Moderate L2-L3 and L3-L4 central canal narrowing. 5. Severe bilateral L5-S1 neural foraminal narrowing with compression of the exiting bilateral L5 ner ve roots. Reviewed by: Rola Skinner MD, PhD on 08/12/2020 5:29 PM PDT Approved by: Rola Skinner MD, PhD on 08/12/2020 5:29 PM PDT Station ID: [id number]
== END 2020-08-12 10:09 | disposition home or self-care (01) ==
LOC: DI 10:08
PROVIDERS: ATTEND Physician Assistant Surgical
DX: M47.816 Spondylosis without myelopathy or radiculopathy, lumbar region (principal); M48.061 Spinal stenosis, lumbar region without neurogenic claudication; M43.17 Spondylolisthesis, lumbosacral region; M51.36 Other intervertebral disc degeneration, lumbar region; M51.37 Other intervertebral disc degeneration, lumbosacral region

== ENCOUNTER 2020-10-16 08:00 | Outpatient (CLI) | payer MEDICARE, OTHER ==
[2020-10-16 17:54] LABS: BASOPHILS % (AUTO) 0.5 %; EOSINOPHILS # (AUTO) 0.2 10^3/uL (0.0-0.7); EOSINOPHILS % (AUTO) 2.8 %; HCT - HEMATOCRIT 41.5 % (42.0-52.0); LYMPHOCYTES # (AUTO) 1.8 10^3/uL (1.5-3.5); LYMPHOCYTES % (AUTO) 21.3 %; MEAN CORPUSCULAR HEMOGLOBIN 34.7 pg (27.0-31.0); MEAN CORPUSCULAR HGB CONC 33.7 g/dL (32.0-36.0); MEAN CORPUSCULAR VOLUME 102.7 fL (80.0-94.0); MEAN PLATELET VOLUME 11.6 fL (7.4-11.4); MONOCYTES # (AUTO) 0.9 10^3/uL (0.0-1.0); MONOCYTES % (AUTO) 9.8 %; NEUTROPHILS # (AUTO) 5.6 10^3/uL (1.5-6.6); NEUTROPHILS % (AUTO) 64.8 %; PLT - PLATELET COUNT 177 10^3/uL (130-450); RED BLOOD COUNT 4.04 10^6/uL (4.70-6.10); WHITE BLOOD COUNT 8.6 x10^3/uL (4.8-10.8)
[2020-10-16 18:18] LABS: ALBUMIN 3.9 g/dL (3.2-5.5); ALBUMIN/GLOBULIN RATIO 1.3 (1.0-2.2); ALKALINE PHOSPHATASE 50 IU/L (42-121); ALT ALANINE AMINOTRANSFERASE 26 IU/L (10-60); AST ASPARTATE AMINOTRANSFERASE 20 IU/L (10-42); BILIRUBIN,TOTAL 0.7 mg/dL (0.2-1.0); BUN - BLOOD UREA NITROGEN 32 mg/dL (6-20); CALCIUM 8.7 mg/dL (8.5-10.3); CARBON DIOXIDE - CO2 27 mmol/L (21-32); CHLORIDE 100 mmol/L (101-111); CHOL/HDL RATIO 2.1 (<5.0); CHOLESTEROL 121 mg/dL; CREATININE 1.7 mg/dL (0.6-1.2); CREATININE,URINE 145.5 mg/dL; GFR - MDRD 39 (>89); GLUCOSE 111 mg/dL (70-100); HDL CHOLESTEROL 59 mg/dL; LDL CHOLESTEROL,CALCULATED 43 mg/dL; LDL/HDL RATIO 0.7 (<3.6); MICROALBUM/CREATININE RATIO,UR 186.3 ug/mg (<30.0); MICROALBUMIN,URINE 27.1 mg/dL (0-300.0); POTASSIUM 4.3 mmol/L (3.5-5.0); SODIUM 136 mmol/L (135-145); TOTAL PROTEIN 6.8 g/dL (6.7-8.2); TRIGLYCERIDES 95 mg/dL; VLDL CHOLESTEROL 19 mg/dL
[2020-10-16 21:06] LABS: ESTIMATED AVERAGE GLUCOSE 140 mg/dL (70-100); HEMOGLOBIN A1c% 6.5 % (4.27-6.07)
== END 2020-10-16 23:59 | disposition home or self-care (01) ==
LOC: LAB.WCP 08:00
PROVIDERS: ATTEND Physician Assistant Medical
DX: E78.5 Hyperlipidemia, unspecified (principal); I10 Essential (primary) hypertension; E11.59 Type 2 diabetes mellitus with other circulatory complications
CPT/HCPCS: 36415; 80053; 80061; 82043; 82570; 83036; 83721; 85025

== ENCOUNTER 2021-04-08 08:00 | Outpatient (CLI) | payer MEDICARE, OTHER ==
[2021-04-08 18:13] LABS: CALCIUM 8.9 mg/dL (8.5-10.3); CREATININE 1.4 mg/dL (0.6-1.2); POTASSIUM 3.8 mmol/L (3.5-5.0)
[2021-04-08 20:38] LABS: ESTIMATED AVERAGE GLUCOSE 143 mg/dL (70-100); HEMOGLOBIN A1c% 6.6 % (4.27-6.07)
== END 2021-04-08 23:59 | disposition home or self-care (01) ==
LOC: LAB.WCP 08:00
PROVIDERS: ATTEND Physician Assistant Medical
DX: E11.59 Type 2 diabetes mellitus with other circulatory complications (principal)
CPT/HCPCS: 36415; 80048; 83036

== ENCOUNTER 2021-11-09 09:12 | Outpatient (CLI) | payer MEDICARE ==
[2021-11-09 09:39] LABS: ALBUMIN 3.8 g/dL (3.2-5.5); ALBUMIN/GLOBULIN RATIO 1.2 (1.0-2.2); ALKALINE PHOSPHATASE 56 IU/L (42-121); ALT ALANINE AMINOTRANSFERASE 18 IU/L (10-60); AST ASPARTATE AMINOTRANSFERASE 18 IU/L (10-42); BILIRUBIN,TOTAL 0.8 mg/dL (0.2-1.0); BUN - BLOOD UREA NITROGEN 29 mg/dL (6-20); CALCIUM 9.4 mg/dL (8.5-10.3); CARBON DIOXIDE - CO2 27 mmol/L (21-32); CHLORIDE 103 mmol/L (101-111); CHOL/HDL RATIO 2.2 (<5.0); CHOLESTEROL 137 mg/dL; CREATININE 1.8 mg/dL (0.6-1.2); GFR - MDRD 36 (>89); GLUCOSE 119 mg/dL (70-100); HDL CHOLESTEROL 61 mg/dL; LDL CHOLESTEROL,CALCULATED 64 mg/dL; POTASSIUM 4.3 mmol/L (3.5-5.0); SODIUM 140 mmol/L (135-145); TOTAL PROTEIN 6.9 g/dL (6.7-8.2); TRIGLYCERIDES 60 mg/dL; VLDL CHOLESTEROL 12 mg/dL
[2021-11-09 12:33] LABS: ESTIMATED AVERAGE GLUCOSE 134 mg/dL (70-100); HEMOGLOBIN A1c% 6.3 % (4.27-6.07)
== END 2021-11-09 09:13 | disposition home or self-care (01) ==
LOC: LAB 09:12
PROVIDERS: ATTEND Physician Assistant Medical
DX: E11.59 Type 2 diabetes mellitus with other circulatory complications (principal)
CPT/HCPCS: 36415; 80053; 80061; 83036; 83721

== ENCOUNTER 2022-03-14 10:03 | Outpatient (CLI) | payer MEDICARE ==
[2022-03-15 10:42] LABS: CALCIUM 8.9 mg/dL (8.5-10.3); CREATININE 1.7 mg/dL (0.6-1.2); POTASSIUM 4.1 mmol/L (3.5-5.0)
== END 2022-03-14 10:04 | disposition home or self-care (01) ==
LOC: LAB 10:03
PROVIDERS: ATTEND Physician Assistant Medical
DX: M1A.9XX1 Chronic gout, unspecified, with tophus (tophi) (principal); N28.9 Disorder of kidney and ureter, unspecified
CPT/HCPCS: 36415; 80048; 84550

== ENCOUNTER 2022-07-08 09:03 | Outpatient (CLI) | payer MEDICARE ==
[2022-07-08 09:48] LABS: ALBUMIN 3.7 g/dL (3.2-5.5); ALBUMIN/GLOBULIN RATIO 1.2 (1.0-2.2); ALKALINE PHOSPHATASE 49 IU/L (42-121); ALT ALANINE AMINOTRANSFERASE 16 IU/L (10-60); AST ASPARTATE AMINOTRANSFERASE 18 IU/L (10-42); BILIRUBIN,TOTAL 0.4 mg/dL (0.2-1.0); BUN - BLOOD UREA NITROGEN 36 mg/dL (6-20); CALCIUM 8.9 mg/dL (8.5-10.3); CARBON DIOXIDE - CO2 26 mmol/L (21-32); CHLORIDE 105 mmol/L (101-111); CHOL/HDL RATIO 1.8 (<5.0); CHOLESTEROL 150 mg/dL; CREATININE 2.1 mg/dL (0.6-1.2); GFR - MDRD 30 (>89); GLUCOSE 112 mg/dL (70-100); HDL CHOLESTEROL 83 mg/dL; LDL CHOLESTEROL,CALCULATED 58 mg/dL; LDL/HDL RATIO 0.7 (<3.6); POTASSIUM 4.3 mmol/L (3.5-5.0); SODIUM 139 mmol/L (135-145); TOTAL PROTEIN 6.9 g/dL (6.7-8.2); TRIGLYCERIDES 43 mg/dL; VLDL CHOLESTEROL 9 mg/dL
[2022-07-08 10:31] LABS: ESTIMATED AVERAGE GLUCOSE 126 mg/dL (70-100)
== END 2022-07-08 09:04 | disposition home or self-care (01) ==
LOC: LAB 09:03
PROVIDERS: ATTEND Physician Assistant Medical
DX: E11.59 Type 2 diabetes mellitus with other circulatory complications (principal)
CPT/HCPCS: 36415; 80053; 80061; 83036; 83721

== ENCOUNTER 2022-07-15 10:42 | Outpatient (CLI) | payer MEDICARE ==
--- NOTE | 2022-07-15 11:57 | Ultrasound Report ---
PROCEDURE: Retroperitoneal INDICATIONS: ACUTE KIDNEY INJURY TECHNIQUE: Real-time scanning was performed of the retroperitoneal organs, with image documentation. COMPARISON: None FINDINGS: Kidneys: Right kidney measures 9.4 cm. The left kidney measures 12.1 cm. Normal cortical thickness. N o hydronephrosis. Multiple renal cysts, measuring up to 1.2 cm on the right and 5.3 cm on the left lower pole (dominant largest cyst). Bladder: Incompletely distended with prevoid volume 54 cc. Postvoid residual is 29 cc. Prostate is 3. 4 x 3.9 x 3.8 cm. Ureter jets were not well seen. IMPRESSION: Multiple renal cysts, measuring up to 4.5 cm on the left lower pole. Incompletely distended bladder. No evidence of hydronephrosis. Reviewed by: Logan Arreola MD on 07/15/2022 11:56 AM PDT Approved by: Logan Arreola MD on 07/15/2022 11:56 AM PDT Station ID: [id number]
== END 2022-07-15 10:43 | disposition home or self-care (01) ==
LOC: DI 10:42
PROVIDERS: ATTEND Internal Medicine Nephrology
DX: N17.9 Acute kidney failure, unspecified (principal); N28.1 Cyst of kidney, acquired

== ENCOUNTER 2022-08-04 13:12 | Outpatient (CLI) | payer MEDICARE ==
[2022-08-04 13:31] LABS: BASOPHILS % (AUTO) 0.5 %; EOSINOPHILS # (AUTO) 0.3 10^3/uL (0.0-0.7); EOSINOPHILS % (AUTO) 3.9 %; HGB - HEMOGLOBIN 14.8 g/dL (14.0-18.0); LYMPHOCYTES # (AUTO) 1.7 10^3/uL (1.5-3.5); LYMPHOCYTES % (AUTO) 19.6 %; MEAN CORPUSCULAR HEMOGLOBIN 33.9 pg (27.0-31.0); MEAN CORPUSCULAR HGB CONC 33.6 g/dL (32.0-36.0); MEAN CORPUSCULAR VOLUME 100.7 fL (80.0-94.0); MEAN PLATELET VOLUME 10.3 fL (7.4-11.4); MONOCYTES # (AUTO) 0.8 10^3/uL (0.0-1.0); MONOCYTES % (AUTO) 8.8 %; NEUTROPHILS # (AUTO) 5.7 10^3/uL (1.5-6.6); NEUTROPHILS % (AUTO) 66.8 %; PLT - PLATELET COUNT 200 10^3/uL (130-450); RED BLOOD COUNT 4.37 10^6/uL (4.70-6.10); RED CELL DISTRIBUTION WIDTH 13.1 % (12.0-15.0); WHITE BLOOD COUNT 8.5 x10^3/uL (4.8-10.8)
[2022-08-04 13:42] LABS: PHOSPHORUS 3.1 mg/dL (2.5-4.6)
[2022-08-06 04:09] LABS: COMPLEMENT C3 134 mg/dL (82-167); COMPLEMENT C4 32 mg/dL (12-38)
[2022-08-06 10:08] LABS: MYELOPEROXIDASE (MPO) AB <0.2 units (0.0-0.9)
[2022-08-08 16:08] LABS: A/G RATIO 1.1 (0.7-1.7); ALBUMIN 3.4 g/dL (2.9-4.4); ALPHA-1-GLOBULIN 0.3 g/dL (0.0-0.4); ALPHA-2-GLOBULIN 0.9 g/dL (0.4-1.0); GLOBULIN TOTAL 3.1 g/dL (2.2-3.9); IMMUNOGLOBULIN A (IGA) 309 mg/dL (61-437); IMMUNOGLOBULIN G (IGG) 971 mg/dL (603-1613); IMMUNOGLOBULIN M (IGM) 91 mg/dL (15-143); M-SPIKE Not Observed g/dL (Not Observed); PROTEIN TOTAL 6.5 g/dL (6.0-8.5)
[2022-08-09 09:09] LABS: ANTINUCLEAR ANTIBODIES IFA Negative (.)
== END 2022-08-04 13:13 | disposition home or self-care (01) ==
LOC: LAB 13:12
PROVIDERS: ATTEND Internal Medicine Nephrology
DX: N18.4 Chronic kidney disease, stage 4 (severe) (principal); N25.81 Secondary hyperparathyroidism of renal origin; E83.30 Disorder of phosphorus metabolism, unspecified; D70.9 Neutropenia, unspecified; D63.1 Anemia in chronic kidney disease; L93.2 Other local lupus erythematosus; I77.6 Arteritis, unspecified; D47.2 Monoclonal gammopathy
CPT/HCPCS: 36415; 82565; 82784; 83876; 83970; 84100; 84155; 84165; 85025; 86038; 86160; 86334

== ENCOUNTER 2022-08-19 07:48 | Outpatient (CLI) | payer MEDICARE ==
[2022-08-19 08:22] LABS: CALCIUM 8.8 mg/dL (8.5-10.3); CREATININE 2.2 mg/dL (0.6-1.2); POTASSIUM 4.7 mmol/L (3.5-5.0)
== END 2022-08-19 07:49 | disposition home or self-care (01) ==
LOC: LAB 07:48
PROVIDERS: ATTEND Internal Medicine Nephrology
DX: N05.9 Unspecified nephritic syndrome with unspecified morphologic changes (principal)
CPT/HCPCS: 36415; 80048

== ENCOUNTER 2022-09-21 08:50 | Outpatient (CLI) | payer MEDICARE ==
[2022-09-21 09:35] LABS: CALCIUM 8.9 mg/dL (8.5-10.3); CREATININE 2.2 mg/dL (0.6-1.2)
== END 2022-09-21 08:51 | disposition home or self-care (01) ==
LOC: LAB 08:50
PROVIDERS: ATTEND Internal Medicine Nephrology
DX: N05.9 Unspecified nephritic syndrome with unspecified morphologic changes (principal)
CPT/HCPCS: 36415; 80048

== ENCOUNTER 2022-10-02 11:25 | Outpatient (CLI) | payer MEDICARE | END 2022-10-02 23:59 | disposition critical access hospital (66) | LOC: EMS 11:25 | DX: R55 Syncope and collapse (principal) | CPT/HCPCS: A0425; A0427 ==

== ENCOUNTER 2022-10-02 11:51 | Emergency (ER) | payer MEDICARE ==
--- NOTE | 2022-10-02 12:07 | ED Physician Documentation ---
History of Present Illness - Stated complaint Stated Complaint: SYNCOPE - Chief complaint Chief Complaint: Cardiac - History obtained from History obtained from: Patient, Family - Additonal information Additional information: This is an 81-year-old male with a past medical history of hypertension In prior cardiac stent placement as well as recently diagnosed renal insufficiency Who presents after a near syncopal episode while at [employer]. 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 He felt dizzy and he immediately sat down in the pew and according to had a blank stare on his face, and was pale. The symptoms lasted a minute or so and then he felt back to baseline. He did not collapse or lose consciousness. He had no associated chest pain or difficulty breathing, no abdominal pain nausea vomiting or diarrhea, no urinary symptoms. He denies any new medications, he is only on Plavix and atenolol. He is no longer on hydrochlorothiazide. He states his PCP has been monitoring his renal function recently as he has had some decrease in his renal function but At this point they are just monitoring this. The patient does state that he did not eat anything this morning and he typically eats In the morning. He only drink a glass of water and a few cups of coffee. He has been feeling well recently and denies any new concerns. Review of Systems Constitutional: reports: Reviewed and negative Eyes: reports: Reviewed and negative Ears: reports: Reviewed and negative Nose: reports: Reviewed and negative Throat: reports: Reviewed and negative Cardiac: reports: Other (Near syncope). denies: Chest pain / pressure, Palpitations, Pedal edema, Calf pain Respiratory: reports: Reviewed and negative GI: reports: Reviewed and negative : reports: Reviewed and negative Musculoskeletal: reports: Reviewed and negative Neurologic: reports: Near syncope. denies: Generalized weakness, Focal weakness, Numbness, Difficulty speaking, Syncope, Seizure, Confused, Altered mental status, Unresponsive, Headache, Head injury, LOC Psychiatric: reports: Reviewed and negative PD PAST MEDICAL HISTORY - Past Medical History Past Medical History: Yes Cardiovascular: Hypertension Endocrine/Autoimmune: None : Renal insuffiency Musculoskeletal: Osteoarthritis, Chronic back pain, Other - Past Surgical History Past Surgical History: Yes General: Appendectomy Ortho: Hip replacement Cardiovascular: Coronary stent - Present Medications Home Medications: Ambulatory Orders Medication Instructions Recorded Confirmed Atenolol 50 mg PO DAILY 03/21/14 03/21/14 Atorvastatin [Lipitor] 10 mg PO DAILY 03/21/14 03/21/14 hydroCHLOROthiazide 12.5 mg PO DAILY 03/21/14 03/21/14 [Hydrochlorothiazide] Aspirin Chewable [[place] 08/17/17 Aspirin] Tamsulosin [Flomax] 08/17/17 - Allergies Allergies/Adverse Reactions: Allergies Allergy/AdvReac Type Severity Reaction Status Date / Time No Known Drug Allergies Allergy Verified 10/02/22 12:01 - Social History Does the pt smoke?: No Smoking Status: Never smoker Does the pt drink ETOH?: No Does the pt have substance abuse?: No - Immunizations Immunizations are current?: Yes - POLST Patient has POLST: No PD ED PE NORMAL - Vitals Vital signs reviewed: Yes - General General: Alert and oriented X 3, No acute distress, Well developed/nourished - HEENT HEENT: Atraumatic, PERRL, EOMI, Ears normal, Moist mucous membranes, Pharynx benign, Dentition benign - Neck Neck: Supple, no meningeal sign, No adenopathy, No JVD - Cardiac Cardiac: RRR, No murmur, No gallop, No rub, Strong equal pulses - Respiratory Respiratory: No respiratory distress, Clear bilaterally - Abdomen Abdomen: Normal bowel sounds, Soft, Non tender, Non distended - Derm Derm: Normal color, Warm and dry - Extremities Extremities: No deformity, No tenderness to palpate, Normal ROM s pain, No edema, No calf tenderness / cord - Neuro Neuro: Alert and oriented X 3, 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, No motor deficit, No sensory deficit, Normal speech Eye Opening: Spontaneous Motor: Obeys Commands Verbal: Oriented GCS Score: 15 - Psych Psych: Normal mood, Normal affect Results - Vitals Vitals: Vital Signs - 24 hr 10/02/22 10/02/22 10/02/22 11:57 12:34 13:33 Temperature 36.4 C L Heart Rate 51 L 52 L 61 Respiratory 17 11 L 16 Rate Blood Pressure 112/58 L 130/71 124/65 O2 Saturation 96 97 95 10/02/22 14:10 Temperature Heart Rate 54 L Respiratory 16 Rate Blood Pressure 145/69 H O2 Saturation 99 Oxygen O2 Source Room air - EKG (time done) No standard instances EKG releavant findings:: EKG personally interpreted by author of this note. Relevant findings are: Rate: Rate (enter#) (51) Rhythm: Sinus bradycardia [place]: Normal Intervals: Prolonged OR, 1st degree AVB QRS: Normal Ischemia: Normal ST segments Computer interpretation: Agree with computer - Labs Labs: Laboratory Tests 10/02/22 10/02/22 10/02/22 12:12 12:12 12:12 WBC 8.7 RBC 3.66 L Hgb 12.4 L Hct 36.4 L MCV 99.5 H MCH 33.9 H MCHC 34.1 RDW 13.4 Plt Count 165 MPV 10.6 Neut # (Auto) 6.3 Lymph # (Auto) 1.3 L [place] # (Auto) 0.8 Eos # (Auto) 0.3 Baso # (Auto) 0.0 Absolute Nucleated RBC 0.00 Nucleated RBC % 0.0 Sodium 140 Potassium 4.4 Chloride 109 Carbon Dioxide 25 Anion Gap 6.0 BUN 38 H Creatinine 2.5 H Estimated GFR (MDRD) 25 L Glucose 141 H Calcium 8.3 L Total Bilirubin 0.6 AST 17 ALT 15 Alkaline Phosphatase 47 Troponin I High Sens 5.9 Total Protein 6.5 L Albumin 3.2 Globulin 3.3 Albumin/Globulin Ratio 1.0 Lipase 28 Urine Color Urine Clarity Urine pH Ur Specific [place] Urine Protein Urine Glucose (UA) Urine Ketones Urine Occult Blood Urine Nitrite Urine Bilirubin Urine Urobilinogen Ur Leukocyte Esterase Urine RBC Urine WBC Ur Squamous Epith Cells Urine Bacteria Urine Casts Ur Microscopic Review Urine Culture Comments 10/02/22 10/02/22 10/02/22 13:41 13:41 14:02 WBC RBC Hgb Hct MCV MCH MCHC RDW Plt Count MPV Neut # (Auto) Lymph # (Auto) [place] # (Auto) Eos # (Auto) Baso # (Auto) Absolute Nucleated RBC Nucleated RBC % Sodium Potassium Chloride Carbon Dioxide Anion Gap BUN Creatinine 2.4 H Estimated GFR (MDRD) 26 L Glucose Calcium Total Bilirubin AST ALT Alkaline Phosphatase Troponin I High Sens 6.0 Total Protein Albumin Globulin Albumin/Globulin Ratio Lipase Urine Color DARK YELLOW Urine Clarity CLEAR Urine pH 6.0 Ur Specific [place] 1.025 Urine Protein >=300 H Urine Glucose (UA) NEGATIVE Urine Ketones NEGATIVE Urine Occult Blood NEGATIVE Urine Nitrite NEGATIVE Urine Bilirubin NEGATIVE Urine Urobilinogen 0.2 (NORMAL) Ur Leukocyte Esterase NEGATIVE Urine RBC 0-5 Urine WBC 0-3 Ur Squamous Epith Cells RARE Squamous Urine Bacteria Few Urine Casts 0-2 Course Granular Ur Microscopic Review INDICATED Urine Culture Comments NOT INDICATED PD Medical Decision Making - ED course Complexity details: reviewed old records, reviewed results, re-evaluated patient, considered differential, d/w patient, d/w family ED course: 81-year-old male presented after near syncopal episode as described in HPI. On arrival here, patient is completely asymptomatic, feels back to baseline. He has no focal physical exam Findings other than mild bradycardia likely a result of his atenolol. He is able to ambulate w/ steady gate to/from bathroom without ataxia. His initial EKG shows no acute ischemic changes and chest x-ray is normal. We obtained labs which were significant for slight worsening in his renal function with creatinine up to 2.5, up from his baseline recently of 2.1- 2.2. His GFR is down to 25. His labs are otherwise stable including high-sensi tivity troponin x2 which is within the normal range for his age. The patient had received some IV fluids via EMS and I given him additional 500 MLS here, a repeat creatinine reveals his level of 2.4, improved slightly. The patient also noted to have significant proteinuria in his urine. Pts near synope likely due to prolonged standing and fatigue this AM, made worse with mild dehydration this morning and lack of p.o. intake. There are no neuro changes or cardiac findings to suggest an acute stroke or cardiac etiology. The patient is feeling back to baseline at this time, I do think he is safe for dismissal home but have recommended that he continue follow-up with his PCP for his renal function and he should have an outpatient echocardiogram if not done recently given his near syncope. I discussed return precautions in detail with patient and his if new or worsening symptoms. Departure - Departure Disposition: 01 Home, Self Care Clinical Impression: Near syncope, Acute kidney injury Condition: Good Instructions: Injury Acute Kidney Dc, ED Near Syncope Unkn Comments: You presented after an episode of near syncope. This is likely due to prolonged standing and fatigue that you are feeling this morning. We did evaluate your heart and your heart labs and EKG are stable. You do have progression of your chronic kidney disease and mild dehydration. You will need to follow-up with your primary doctor regarding this to continue to monitor closely. You should make an effort to stay well-hydrated, avoid prolonged standing and sit down when you are feeling fatigued. I would recommend that you follow-up with your primary doctor in the can order an outpatient echocardiogram to further evaluate your heart. They may also consider an ultrasound of your kidneys as an evaluation of your worsening chronic kidney disease. Please do not start any new medication Without talking to your doctor as a number of medications can worsening kidney disease. As we discussed, please avoid any ibuprofen or other NSAIDs such as Aleve/naproxen. You can take Tylenol if needed for aches and pains.If you have worsening symptoms or recurrent episodes, please return to the ER. Discharge Date/Time: 10/02/22 14:34
[2022-10-02 12:21] LABS: BASOPHILS % (AUTO) 0.5 %; EOSINOPHILS # (AUTO) 0.3 10^3/uL (0.0-0.7); EOSINOPHILS % (AUTO) 3.2 %; HCT - HEMATOCRIT 36.4 % (42.0-52.0); HGB - HEMOGLOBIN 12.4 g/dL (14.0-18.0); LYMPHOCYTES # (AUTO) 1.3 10^3/uL (1.5-3.5); LYMPHOCYTES % (AUTO) 14.7 %; MEAN CORPUSCULAR HEMOGLOBIN 33.9 pg (27.0-31.0); MEAN CORPUSCULAR HGB CONC 34.1 g/dL (32.0-36.0); MEAN CORPUSCULAR VOLUME 99.5 fL (80.0-94.0); MEAN PLATELET VOLUME 10.6 fL (7.4-11.4); MONOCYTES # (AUTO) 0.8 10^3/uL (0.0-1.0); MONOCYTES % (AUTO) 8.7 %; NEUTROPHILS # (AUTO) 6.3 10^3/uL (1.5-6.6); NEUTROPHILS % (AUTO) 72.4 %; PLT - PLATELET COUNT 165 10^3/uL (130-450); RED BLOOD COUNT 3.66 10^6/uL (4.70-6.10); RED CELL DISTRIBUTION WIDTH 13.4 % (12.0-15.0); WHITE BLOOD COUNT 8.7 x10^3/uL (4.8-10.8)
[2022-10-02 12:29] LABS: ALBUMIN 3.2 g/dL (3.2-5.5); BILIRUBIN,TOTAL 0.6 mg/dL (0.2-1.0); CALCIUM 8.3 mg/dL (8.5-10.3); CREATININE 2.5 mg/dL (0.6-1.2); POTASSIUM 4.4 mmol/L (3.5-5.0); TOTAL PROTEIN 6.5 g/dL (6.7-8.2)
[2022-10-02] MEDS ORDERED: SODIUM CHLORIDE 0.9% 500 ML IV STA (13:03)
--- NOTE | 2022-10-02 13:29 | XRAY Report ---
PROCEDURE: Chest 1 View X-Ray INDICATIONS: Chest pain TECHNIQUE: One view of the chest was acquired. COMPARISON: None. FINDINGS: Surgical changes and devices: None. Lungs and pleura: No pleural effusions or pneumothorax. Lungs are clear. Mediastinum: Mediastinal contours appear normal. Heart size is normal. Bones and chest wall: No suspicious bony lesions. Overlying soft tissues appear unremarkable. IMPRESSION: No acute cardiopulmonary process. Reviewed by: Erasmo Schneider MD on 10/02/2022 12:28 PM AKCORBY Approved by: Erasmo Schneider MD on 10/02/2022 12:28 PM AKDT Station ID: [id number]
[2022-10-02 13:56] LABS: CREATININE 2.4 mg/dL (0.6-1.2)
[2022-10-02 14:13] VITALS: BP 145/69
[2022-10-02 14:13] LABS: BILIRUBIN,URINE NEGATIVE (NEGATIVE); GLUCOSE, URINE (UA) NEGATIVE (NEGATIVE); KETONES,URINE (UA) NEGATIVE (NEGATIVE); LEUKOCYTE ESTERASE, URINE NEGATIVE (NEGATIVE); NITRITE,URINE NEGATIVE (NEGATIVE); OCCULT BLOOD,URINE NEGATIVE (NEGATIVE); PROTEIN,URINE >=300 mg/dL (NEGATIVE); UROBILINOGEN,URINE 0.2 (NORMAL) E.U./dL (NORMAL)
[2022-10-02 14:15] LABS: CLARITY,URINE CLEAR (CLEAR)
[2022-10-02 14:30] LABS: BACTERIA,URINE Few /HPF (None Seen); CASTS, URINE 0-2 Course Granular /LPF; RBC,URINE 0-5 /HPF (0-5); SQUAMOUS EPITHELIAL CELL,UR RARE Squamous (<= Few); WBC,URINE 0-3 /HPF (0-3)
== END 2022-10-02 14:34 | disposition home or self-care (01) ==
LOC: ED 11:51
DX: R55 Syncope and collapse (principal); N17.9 Acute kidney failure, unspecified; E86.0 Dehydration
CPT/HCPCS: 36415; 80053; 81001; 81003; 82565; 83690; 84484; 85025; 87086; 93005; 96360; 99284

== ENCOUNTER 2022-10-31 09:36 | Outpatient (CLI) | payer MEDICARE ==
[2022-10-31 09:54] LABS: BASOPHILS % (AUTO) 0.5 %; EOSINOPHILS # (AUTO) 0.3 10^3/uL (0.0-0.7); EOSINOPHILS % (AUTO) 3.8 %; HCT - HEMATOCRIT 39.9 % (42.0-52.0); HGB - HEMOGLOBIN 13.3 g/dL (14.0-18.0); LYMPHOCYTES # (AUTO) 1.8 10^3/uL (1.5-3.5); LYMPHOCYTES % (AUTO) 21.3 %; MEAN CORPUSCULAR HGB CONC 33.3 g/dL (32.0-36.0); MEAN PLATELET VOLUME 10.3 fL (7.4-11.4); MONOCYTES # (AUTO) 0.6 10^3/uL (0.0-1.0); MONOCYTES % (AUTO) 7.3 %; NEUTROPHILS # (AUTO) 5.7 10^3/uL (1.5-6.6); NEUTROPHILS % (AUTO) 66.9 %; PLT - PLATELET COUNT 179 10^3/uL (130-450); RED BLOOD COUNT 3.91 10^6/uL (4.70-6.10); RED CELL DISTRIBUTION WIDTH 13.4 % (12.0-15.0); WHITE BLOOD COUNT 8.5 x10^3/uL (4.8-10.8)
[2022-10-31 10:09] LABS: CALCIUM 8.8 mg/dL (8.5-10.3); CREATININE 2.3 mg/dL (0.6-1.2); PHOSPHORUS 3.6 mg/dL (2.5-4.6); POTASSIUM 4.5 mmol/L (3.5-5.0)
[2022-10-31 10:21] LABS: CREATININE,URINE 65.1 mg/dL
[2022-10-31 10:23] LABS: PROTEIN/CREATININE RATIO,URINE 0.2 (<=0.2); TOTAL PROTEIN,URINE TIMED < 14 mg/dL
== END 2022-10-31 09:37 | disposition home or self-care (01) ==
LOC: LAB 09:36
PROVIDERS: ATTEND Internal Medicine Nephrology
DX: N05.9 Unspecified nephritic syndrome with unspecified morphologic changes (principal); D70.9 Neutropenia, unspecified; D63.1 Anemia in chronic kidney disease; E83.30 Disorder of phosphorus metabolism, unspecified; N25.81 Secondary hyperparathyroidism of renal origin; R80.9 Proteinuria, unspecified
CPT/HCPCS: 36415; 80048; 82570; 83970; 84100; 84156; 85025

== ENCOUNTER 2022-11-24 07:10 | Outpatient (CLI) | payer MEDICARE ==
[2022-11-24 07:35] LABS: CREATININE 2.3 mg/dL (0.6-1.3)
== END 2022-11-24 07:11 | disposition home or self-care (01) ==
LOC: LAB 07:10
PROVIDERS: ATTEND Internal Medicine Nephrology
DX: E11.9 Type 2 diabetes mellitus without complications (principal); N05.9 Unspecified nephritic syndrome with unspecified morphologic changes
CPT/HCPCS: 36415; 82565

== ENCOUNTER 2022-12-26 08:26 | Outpatient (CLI) | payer MEDICARE ==
[2022-12-26 08:55] LABS: ALBUMIN 3.8 g/dL (3.2-5.5); ALBUMIN/GLOBULIN RATIO 1.1 (1.0-2.2); ALKALINE PHOSPHATASE 62 IU/L (42-121); ALT ALANINE AMINOTRANSFERASE 11 IU/L (10-60); AST ASPARTATE AMINOTRANSFERASE 13 IU/L (10-42); BILIRUBIN,TOTAL 0.5 mg/dL (0.2-1.0); BUN - BLOOD UREA NITROGEN 30 mg/dL (6-20); CALCIUM 9.4 mg/dL (8.5-10.3); CARBON DIOXIDE - CO2 27 mmol/L (21-32); CHLORIDE 106 mmol/L (101-111); CHOLESTEROL 116 mg/dL; CREATININE 2.1 mg/dL (0.6-1.3); GFR - MDRD 30 (>89); GLUCOSE 107 mg/dL (74-104); HDL CHOLESTEROL 58 mg/dL; LDL CHOLESTEROL,CALCULATED 40 mg/dL; LDL/HDL RATIO 0.7 (<3.6); POTASSIUM 4.6 mmol/L (3.5-4.5); SODIUM 138 mmol/L (135-145); TOTAL PROTEIN 7.2 g/dL (6.4-8.9); TRIGLYCERIDES 90 mg/dL (48-352); VLDL CHOLESTEROL 18 mg/dL
[2022-12-26 09:36] LABS: ESTIMATED AVERAGE GLUCOSE 126 mg/dL (70-100)
== END 2022-12-26 08:27 | disposition home or self-care (01) ==
LOC: LAB 08:26
PROVIDERS: ATTEND Physician Assistant Medical
DX: E11.51 Type 2 diabetes mellitus with diabetic peripheral angiopathy without gangrene (principal)
CPT/HCPCS: 36415; 80053; 80061; 83036; 83721

== ENCOUNTER 2023-07-11 07:41 | Outpatient (CLI) | payer MEDICARE ==
[2023-07-11 07:56] LABS: BASOPHILS # (AUTO) 0.1 10^3/uL (0.0-0.1); BASOPHILS % (AUTO) 0.8 %; EOSINOPHILS # (AUTO) 0.4 10^3/uL (0.0-0.7); EOSINOPHILS % (AUTO) 5.7 %; HCT - HEMATOCRIT 39.7 % (42.0-52.0); LYMPHOCYTES # (AUTO) 2.2 10^3/uL (1.5-3.5); LYMPHOCYTES % (AUTO) 27.7 %; MEAN CORPUSCULAR HEMOGLOBIN 33.2 pg (27.0-31.0); MEAN CORPUSCULAR HGB CONC 32.7 g/dL (32.0-36.0); MEAN CORPUSCULAR VOLUME 101.3 fL (80.0-94.0); MEAN PLATELET VOLUME 10.5 fL (7.4-11.4); MONOCYTES # (AUTO) 0.6 10^3/uL (0.0-1.0); MONOCYTES % (AUTO) 8.2 %; NEUTROPHILS # (AUTO) 4.4 10^3/uL (1.5-6.6); NEUTROPHILS % (AUTO) 57.2 %; PLT - PLATELET COUNT 204 10^3/uL (130-450); RED BLOOD COUNT 3.92 10^6/uL (4.70-6.10); RED CELL DISTRIBUTION WIDTH 13.2 % (12.0-15.0); WHITE BLOOD COUNT 7.8 x10^3/uL (4.8-10.8)
[2023-07-11 08:14] LABS: CREATININE,URINE 82.4 mg/dL
[2023-07-11 08:17] LABS: ALBUMIN 3.7 g/dL (3.2-5.5); ALBUMIN/GLOBULIN RATIO 1.3 (1.0-2.2); ALKALINE PHOSPHATASE 47 IU/L (42-121); ALT ALANINE AMINOTRANSFERASE 10 IU/L (10-60); AST ASPARTATE AMINOTRANSFERASE 14 IU/L (10-42); BILIRUBIN,TOTAL 0.6 mg/dL (0.2-1.0); BUN - BLOOD UREA NITROGEN 41 mg/dL (6-20); CALCIUM 9.3 mg/dL (8.5-10.3); CARBON DIOXIDE - CO2 27 mmol/L (21-32); CHLORIDE 106 mmol/L (101-111); CHOLESTEROL 140 mg/dL; CREATININE 2.9 mg/dL (0.6-1.3); GFR - MDRD 21 (>89); GLUCOSE 103 mg/dL (74-104); HDL CHOLESTEROL 71 mg/dL; LDL CHOLESTEROL,CALCULATED 55 mg/dL; LDL/HDL RATIO 0.8 (<3.6); POTASSIUM 4.4 mmol/L (3.5-4.5); SODIUM 138 mmol/L (135-145); TOTAL PROTEIN 6.5 g/dL (6.4-8.9); TRIGLYCERIDES 69 mg/dL (48-352); URIC ACID 8.7 mg/dL (4.4-7.6); VLDL CHOLESTEROL 14 mg/dL
[2023-07-11 08:23] LABS: THYROID STIMULATING HORMONE 3.92 uIU/mL (0.34-5.60)
[2023-07-11 08:28] LABS: MICROALBUM/CREATININE RATIO,UR 1782.8 ug/mg (<30.0); MICROALBUMIN,URINE 146.9 mg/dL
[2023-07-11 09:48] LABS: ESTIMATED AVERAGE GLUCOSE 128 mg/dL (70-100); HEMOGLOBIN A1c% 6.1 % (4.27-6.07)
== END 2023-07-11 07:42 | disposition home or self-care (01) ==
LOC: LAB 07:41
PROVIDERS: ATTEND Physician Assistant Medical
DX: I10 Essential (primary) hypertension (principal); E78.5 Hyperlipidemia, unspecified; M1A.37 Chronic gout due to renal impairment, ankle and foot; E11.59 Type 2 diabetes mellitus with other circulatory complications
CPT/HCPCS: 36415; 80053; 80061; 82043; 82570; 83036; 83721; 84443; 84550; 85025

== ENCOUNTER 2024-01-01 15:18 | Outpatient (CLI) | payer MEDICARE | END 2024-01-01 23:59 | disposition left against medical advice (07) | LOC: EMS 15:18 | DX: S00.03XA Contusion of scalp, initial encounter (principal); W01.0XXA Fall on same level from slipping, tripping and stumbling without subsequent striking against object, initial encounter; Y92.008 Other place in unspecified non-institutional (private) residence as the place of occurrence of the external cause; Z79.02 Long term (current) use of antithrombotics/antiplatelets ==

== ENCOUNTER 2024-01-01 16:13 | Emergency (ER) | payer MEDICARE ==
--- NOTE | 2024-01-01 16:27 | ED Physician Documentation ---
PD HPI MAJOR TRAUMA - Stated complaint Stated Complaint: GLF, HEAD IMPACT - Chief complaint Chief Complaint: Trauma Ch/Bk - History obtained from History obtained from: Patient - Additional information Additional information: 83-year-old gentleman who is on Eliquis for atrial fibrillation was helping a friend carry a TV and he was walking backwards and tripped over a curb and hit the back of his head on the pavement. It was a little over an hour ago. No LOC or headache. He does have a goose egg. He was not aware of his last tetanus shot but I was able to find that it was June 26, 2019. PD PAST MEDICAL HISTORY - Past Medical History Past Medical History: Yes Cardiovascular: Hypertension, Coronary artery disease, Atrial fibrillation Neuro: None Endocrine/Autoimmune: None : Renal insuffiency HEENT: None Musculoskeletal: Osteoarthritis, Chronic back pain, Other - Past Surgical History Past Surgical History: Yes General: Appendectomy Ortho: Hip replacement Cardiovascular: Coronary stent - Present Medications Home Medications: Ambulatory Orders Medication Instructions Recorded Confirmed Atenolol 50 mg PO DAILY 03/21/14 01/01/24 Atorvastatin [Lipitor] 40 mg PO DAILY 03/21/14 01/01/24 hydroCHLOROthiazide 12.5 mg PO DAILY 03/21/14 03/21/14 [Hydrochlorothiazide] Tamsulosin [Flomax] 0.4 mg ORAL DAILY 08/17/17 01/01/24 Apixaban [Eliquis] 2.5 mg PO BID 01/01/24 01/01/24 Febuxostat 40 mg ORAL DAILY 01/01/24 01/01/24 Losartan Potassium 100 mg PO DAILY 01/01/24 01/01/24 Pantoprazole [Protonix] 40 mg PO DAILY 01/01/24 01/01/24 - Allergies Allergies/Adverse Reactions: Allergies Allergy/AdvReac Type Severity Reaction Status Date / Time No Known Drug Allergies Allergy Verified 01/01/24 16:16 - Social History Does the pt smoke?: No Smoking Status: Never smoker Does the pt drink ETOH?: Yes ETOH Use: Liquor Does the pt have substance abuse?: No - Immunizations Immunizations are current?: Yes - POLST Patient has POLST: No PD ED PE NORMAL - Vitals Vital signs reviewed: Yes - General General: Alert and oriented X 3, No acute distress - HEENT HEENT: PERRL, EOMI, Other (There is a goose egg with overlying abrasion on the left occiput) - Neck Neck: No bony TTP - Neuro Neuro: Alert and oriented X 3, 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 Relevant Findings:: Final report received, EMP independent interpretation of test PD Medical Decision Making - ED course ED course: 83-year-old gentleman who is anticoagulated on Eliquis for A-fib presents after a head injury with scalp contusion. Subsequent cranial imaging and neck imaging were negative. Departure - Departure Disposition: 01 Home, Self Care Clinical Impression: Anticoagulated, Ground-level fall Scalp contusion Qualifiers: Encounter type: initial encounter Qualified Code(s): S00.03XA - Contusion of s calp, initial encounter Condition: Good Record reviewed to determine appropriate education?: Yes Instructions: ED Head Injury Closed Comments: Note for your records that you had a Tdap shot on June 26, 2019. CAT scan of the head and cervical spine were negative for traumatic injuries. Return if you develop a severe headache or otherwise worsen. You can use ice on the scalp contusion as needed. Okay to wash with soap and water as per usual in the shower. Forms: PCP List
[2024-01-01 17:03] VITALS: BP 138/60; O2SAT 95
--- NOTE | 2024-01-01 17:04 | CT Report ---
PROCEDURE: Head WO INDICATIONS: head inj TECHNIQUE: Noncontrast 4.5 mm thick angled axial sections acquired from the foramen magnum to the vertex. For r adiation dose reduction, the following was used: automated exposure control, adjustment of mA and/or kV according to patient size. COMPARISON: None. FINDINGS: Image quality: Excellent. CSF spaces: Basal cisterns are patent. No extra-axial fluid collections. Ventricles are normal in size and shape. Brain: No midline shift. No intracranial masses or hemorrhage. Estevez-white matter interface is norm al. Skull and face: Calvarium and visualized facial bones are intact, without suspicious lesions. Poste rior left scalp contusion without underlying fracture. Sinuses: Visualized sinuses and mastoids are clear. IMPRESSION: No acute intracranial pathology. Posterior scalp contusion without underlying fracture. Reviewed by: Josh Louis MD on 01/01/2024 5:03 PM PDT Approved by: Josh Louis MD on 01/01/2024 5:03 PM PDT Station ID: [id number]
--- NOTE | 2024-01-01 17:05 | CT Report ---
PROCEDURE: Cervical Spine WO INDICATIONS: head inj TECHNIQUE: Noncontrast 3 mm thick sections acquired from the skull base to the T4 level. Sagittal and coronal r eformats were then constructed. For radiation dose reduction, the following was used: automated exp osure control, adjustment of mA and/or kV according to patient size. COMPARISON: None. FINDINGS: Image quality: Excellent. Bones: No fractures or dislocations. Visualized superior ribs are intact. Mild to moderate, multil evel degenerative disc disease and diffuse facet arthrosis. Soft tissues: Prevertebral soft tissues are normal in thickness. No paravertebral hematomas. No ap ical pneumothoraces. IMPRESSION: No acute, displaced fracture or traumatic subluxation. Reviewed by: Josh Louis MD on 01/01/2024 5:04 PM PDT Approved by: Josh Louis MD on 01/01/2024 5:04 PM PDT Station ID: [id number]
== END 2024-01-01 17:23 | disposition home or self-care (01) ==
LOC: ED 16:13
DX: S00.03XA Contusion of scalp, initial encounter (principal); S00.01XA Abrasion of scalp, initial encounter; W18.09XA Striking against other object with subsequent fall, initial encounter; Y93.01 Activity, walking, marching and hiking; I48.91 Unspecified atrial fibrillation; Z79.01 Long term (current) use of anticoagulants
CPT/HCPCS: 99283; 99284